=== PATIENT | female | born 1990 | race Caucasian/White ===

== ENCOUNTER 2021-07-21 07:44 | Emergency (ER) | payer MEDICAID, OTHER ==
[~2021-07-21] VITALS: Ht 165.1 cm; Wt 86.0 kg
[~2021-07-21 07:44] MED LIST: ALBU6.7H9 INH
[2021-07-21 08:01] VITALS: BP 141/108
[2021-07-21] MEDS ORDERED: dexamethasone sod phosphate 10mg/ml inj PO STA (08:24)
[2021-07-21] MEDS ORDERED: AZIT-83 PO (08:43)
== END 2021-07-21 09:09 | disposition home or self-care (01) ==
LOC: ER 07:45
DX: J40 Bronchitis, not specified as acute or chronic (principal); Z20.822 Contact with and (suspected) exposure to COVID-19; F17.210 Nicotine dependence, cigarettes, uncomplicated; Z79.2 Long term (current) use of antibiotics; Z79.899 Other long term (current) drug therapy
CPT/HCPCS: 71045; 87635; 99284; C9803; J1100; 99283